=== PATIENT | male | born 1955 | race Caucasian/White ===

== ENCOUNTER 2018-07-19 16:07 | Inpatient (IN) | payer OTHER ==
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
[2018-07-19 16:50] LABS: PLATELET COUNT 241 10^3/uL (150-400)
[2018-07-19] MEDS ORDERED: ONDANSETRON 4 MG/2 ML VIAL IVP PRN (18:19)
[2018-07-19] MEDS ORDERED: ONDANSETRON DISINTEGRATING 4 MG TAB PO PRN (18:19)
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
[2018-07-19] MEDS ORDERED: LORazepam 2 MG/ML INJ IVP PRN (20:36)
[2018-07-19] MEDS ORDERED: LORazepam 1 MG TAB PO PRN (20:36)
[2018-07-19] MEDS: THIAMINE HCL 500 MG in NS 100 ML IV SCH (21:22)
[2018-07-19] MEDS: NS 1,000 ML IV SCH (21:22)
[2018-07-20 04:23] LABS: PLATELET COUNT 225 10^3/uL (150-400)
[2018-07-20] MEDS: FOLIC ACID 1 MG TAB PO SCH (09:28)
[2018-07-20] MEDS: MULTIVITAMINS 1 EACH TAB PO SCH (09:28)
[2018-07-20] MEDS: THIAMINE HCL 500 MG in NS 100 ML IV SCH (09:29)
--- NOTE | 2018-07-20 09:32 | PDMN ---
Medical Necessity Medical necessity: [facility] [id number] acute renal failure: 3 days: Cr. elevated ( 4.2, 4.5) pt with acute dizziness, shakiness, anorexia, reduced oral intake, oliguria, symptoms progressing over last 2 days, pt also with active paranoid delusions.- Nephrology consult pending, pt will need TLC consult after medically cleared. anticipate > 2 MN for ongoing med nec care, further eval and tx.
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
[2018-07-20] MEDS ORDERED: POTASSIUM CL 20 MEQ/15 ML UDCUP PO ONE (12:37)
[2018-07-20] MEDS ORDERED: POTASSIUM CL 20 MEQ TAB PO ONE (13:15)
--- NOTE | 2018-07-20 13:40 | SOAPPROG ---
[facility] Progress Note Assessment/Plan: Assessment: Renal consult-- see dictation # [id number] I discussed my recs with Dr. Gabbi Preston MD [facility] pager [phone] 07/20/18 15:32 Objective: Vital Signs Temp Pulse Resp BP Pulse Ox 36.5 C 69 18 120/72 90 L 07/20/18 11:14 07/20/18 11:14 07/20/18 11:14 07/20/18 11:14 07/20/18 11:14 Laboratory Results 07/20/18 03:35 07/20/18 03:35 07/19/18 07/20/18 07/21/18 05:59 05:59 05:59 Intake Total 400 620 Output Total 250 875 Balance 150 -255 ICD10 Worksheet Patient Problems: Problems Problem Status Onset Acute kidney injury Acute Delusional disorder Acute
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
[2018-07-20] MEDS: NS 1,000 ML IV SCH (18:55)
[2018-07-20] MEDS: ACETAMINOPHEN 325 MG TAB PO PRN (20:11)
[2018-07-20] MEDS: LORazepam 0.5 MG TAB PO PRN (20:12)
[2018-07-21] MEDS: NS 1,000 ML IV SCH ×2 (01:20→09:00)
[2018-07-21 06:08] LABS: HIV TYPE 1 AND 2 NEGATIVE (NEGATIVE)
[2018-07-21] MEDS ORDERED: PROTOCOL POTASSIUM 1 DOSE MISC PRN (08:41)
[2018-07-21] MEDS ORDERED: POTASSIUM CL 10 MEQ TAB PO ONE ×2 (08:46→19:25)
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
[2018-07-21] MEDS: FOLIC ACID 1 MG TAB PO SCH (09:41)
[2018-07-21] MEDS: MULTIVITAMINS 1 EACH TAB PO SCH (09:42)
[2018-07-21] MEDS: THIAMINE HCL 500 MG in NS 100 ML IV SCH (09:43)
[2018-07-21] MEDS: ACETAMINOPHEN 325 MG TAB PO PRN ×2 (10:51→20:54)
[2018-07-21] MEDS: POTASSIUM CL 10 MEQ TAB PO SCH ×2 (10:52→14:17)
[2018-07-21] MEDS: LORazepam 1 MG TAB PO PRN ×2 (12:50→20:54)
--- NOTE | 2018-07-21 14:08 | HOSPPROG ---
Hospitalist Progress Note Objective: Vital Signs Temp Pulse Resp BP Pulse Ox 36.5 C 76 18 145/86 H 92 07/21/18 11:35 07/21/18 11:35 07/21/18 11:35 07/21/18 11:35 07/21/18 11:35 Laboratory Results 07/21/18 06:50 07/21/18 03:48 07/20/18 07/21/18 07/22/18 05:59 05:59 05:59 Intake Total 400 4625 Output Total 250 1875 1950 Balance 150 2750 -1950 ICD10 Worksheet Patient Problems: Problems Problem Status Onset Acute kidney injury Acute Delusional disorder Acute
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
[2018-07-21] MEDS: D5W NS W/ 20 KCl/L 1,000 ML IV SCH (15:46)
[2018-07-22] MEDS: D5W NS W/ 20 KCl/L 1,000 ML IV SCH ×3 (01:25→21:58)
[2018-07-22] MEDS ORDERED: PROTOCOL MAGNESIUM 1 DOSE IV PRN (07:29)
[2018-07-22] MEDS ORDERED: MAGNESIUM SULF 2 GM/WATER 50 ML IV ONE (09:29)
--- NOTE | 2018-07-22 09:34 | SOAPPROG ---
SOAP Progress Note Assessment/Plan: Assessment: PRAVIN, resolving with hydration, creat 4.5, 2.5, 1.4, no value today hypokalemia continues to improve with supplements hypomagnesemia, will supplement today and follow acidosis improving with volume and electrolyte replacement Plan: continue therapies await today's labs supplement mag and K as necessary follow lytes vol and renal function 07/22/18 09:31 Subjective: resting quietly has been delusional Objective: Vital Signs Temp Pulse Resp BP Pulse Ox 36.8 C 64 14 174/95 H 93 07/22/18 04:00 07/22/18 04:00 07/22/18 04:00 07/22/18 04:00 07/22/18 04:00 Laboratory Results 07/21/18 06:50 07/22/18 03:20 07/21/18 07/22/18 07/23/18 05:59 05:59 05:59 Intake Total 4625 3855 Output Total 1875 3700 Balance 2750 155 Physical Exam - Physical Exam General Appearance: thin, other (resting) Neck: normal inspection Respiratory: No rhonchi, No wheezing Cardiac/Chest: No edema, No gallop, No friction rub Abdomen: normal bowel sounds, non-tender, soft Skin: warm/dry Extremities: non-tender Neuro/Psych: other (resting/arouseable) ICD10 Worksheet Patient Problems: Problems Problem Status Onset Acute kidney injury Acute Delusional disorder Acute
[2018-07-22] MEDS: METOPROLOL SUCCINATE XR 50 MG TAB PO SCH (11:14)
[2018-07-22] MEDS: amLODIPine BESYLATE 5 MG TAB PO SCH (11:14)
[2018-07-22] MEDS: THIAMINE HCL 100 MG TAB PO SCH (11:14)
[2018-07-22] MEDS: MULTIVITAMINS 1 EACH TAB PO SCH (11:14)
[2018-07-22] MEDS: FOLIC ACID 1 MG TAB PO SCH (11:15)
[2018-07-22] MEDS: ACETAMINOPHEN 325 MG TAB PO PRN (11:22)
[2018-07-22] MEDS: LORazepam 1 MG TAB PO PRN (14:16)
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
--- NOTE | 2018-07-22 19:30 | PDCONSULT ---
Educational Technology Specialist Note: PSYCHIATRY MD CONSULT Pt interviewed for 60+min today, reviewed EMR and discussed case with hospitalist Dr. Sunita Waldron who requested psychiatry consult for evaluation of delusions and recommendations. CC: "Unless you can arrest the people doing this to me, you won't be able to help me". BRIEF HISTORY: 62yo CM with no prior formal psychiatric hx admitted with acute kidney injury which seems to be related to his admitted decreased oral intake over past 2 weeks due to increased paranoid delusions of being poisoned. Delusions are chronic, have been occurring over past 9+ years and have resulted in his moving several times, increasing social isolation although presently still maintaining employment. He is convinced of being stalked by an extensive network of individuals who for years have focused on harassing him and disrupting his sleep , and more recently over past couple of weeks have "stepped up their attacks" by trying to kill him by poisoning him with contaminating his food and pumping toxic gas into the air. For this reason he states he has not been eating x 2 wks, with decreased fluid intake, and reporting 20# wt loss over this period of time, although still admits to continued EtOH intake to deal with associated anxiety, and has been maintaining his employment. Reportedly employer tolerates his eccentricities ( including wearing baseball cap and hoodie to block chemicals etc falling on him while he is working) b/c he is a good employee and generates good money for them. He spends much time/energy trying to deal with his perceived stalkers, has called police, FBI and stalking hotlines etc but feels no one believes him. Looking for validation, states price changer who consulted recently mentioned tests for paint thinner exposure etc which could contribute to his symptoms. States he must find ways to protect his food because at any stage (purchasing, opening, consuming) it could get "tainted". He doesn't use refrigerator at work anymore either b/c feels it has been compromised. Has been eating while in hospital, and drinking fluids, doesn't feel this way as much here but does feel they will catch up to him at some point. He finds support and validation on online sites where others describe similar experiences. He admits to regular EtOH use, and does not plan to abstain b/c this helps him with deal with associated anxiety,and sees his EtOH use as his one temporary relief. Feels prn Ativan here in hospital helps with sleep. Reports stalking started increasing paranoia over 9 years which started " because I insulted the wrong person" many years ago. 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 Subsequently moved out of his apt, and has been moving ever since. Directed this MD to [employer]" to verify that things like this happen, "and you become a T.I., a targeted individual," being harrassed, intimidated and deprived of sleep. "The choose targets like me , old, alone, no family..." or create situations which serve to isolate individuals from family, like causing him to move. Has had to engage in behaviors like blocking up vents and in the past in [place] was sleeping under his bed until he heard "them" in crawl space between floors beneath him. Requests assistance with legal action and arrests of involved individuals, has called FBI, also [place] police "and they brought people like you, head doctors." Denies hx of manic symptoms, and feels justifiably depressed although not hopeless. "I still have some hope", and desires help which is why he came to hospital. Has lost weight but not without appetite, just describes being paranoid about food being poisoned. Sleep is interrupted, energy and concentration are fine. Has no time to engage in activities he previously enjoyed b/c of being stalked and always trying to maintain his safety. Admits he has no social supports although does occasionally talk to his sisters in [place], and his boss. Has refused any SIMEON. He presently feels relatively safer in hospital, staff report he has been eating meals and rehydrating since admission, with steady improvement of his renal function. Also sleeping a bit better since in hospital, and physically feeling better. Denies any SI or thoughts to harm others even in any retaliation for his being persecuted, "No, I'm not that kind of rojas", but does feel "they" will "step up their attacks" against him, and is afraid they will ultimately kill him. Does not want to , "that's why I came here (to hospital) , because I don't want to ." Not suicidal and with no thoughts/plan/intent to harm others. Feels he is the one being targeted. Denies access to weapons, owns no guns, and only has some knives at home he reports he does not carry with him. Many years ago he carried one for protection. PSYCHIATRIC/SUBST USE HX: Denies prior psychiatric treatment, inpatient or outpatient setting, or any prior therapy or psychiatric medications. Denies illicit substance use, although alluded to THC during youth, and still drinks EtOH regularly but feels it is not problematic b/c he still goes to work, doesn' t drink when working, doesn't have cirrhosis or withdrawal, denies hx of DTs. Denies known family psychiatric illness or hx of substance use. SOCIAL HX: Grew up in [place], moved to [place] about 6 years ago after applying online for a job and getting hired. Admits did move several times in the prior few years to get away from being stalked, moved within [place] then to [place] then to [place] and has moved about 2x/yr over past 6 yrs, which has negatively impacted his credit due to breaking leases and cost him $ in losing his deposits several times. Now resides in [facility] 5mo, now considering moving again due to attempted poisonings. Has 2 sisters in [place], mother in [place], father of [place] in pt thinks due to years of immunosuppressant drugs following cardiac transplant (became briefly tearful about this). once, . No children. Attended college, degree in journalism. 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 publication many years ago. MSE: cooperative, good eye contact although wearing sunglasses throughout initial part of interview he reports due to light sensitivity despite curtains drawn, nml psychomotor activity, sitting upright in hospital bed, with nml speech vol/rate, not pressured, +articulate, mood "fine" although admits baseline anxiety and some depression related to being chronically stalked, affect somewhat constricted but appropriately smiles and engages, thought process/content- linear, goal-directed responses to questions although guarded with some information due to concerns that members of gang stalking him would be wanting such information (such as if he ever considered moving back to [place] near supportive siblings to be less isolated), elaborate system of delusions around gang members stalking him for past 9 years with intent to harass or disrupt sleep, and recently trying to kill him, has experienced ideas of reference in the past not presently, occasionally expressing suspicion that this MD and some other staff may be involved with this conspiracy but overall did express feeling safer in hospital setting including with food/fluids. Consistently denied any suicidal ideations (active or passive) and denied any thoughts to harm others or thoughts of retaliation towards any "gangstalking" members. Is convinced this is an extensive network, and does not always feel certain he knows who is invoved, but does feel comments some people say to him make him more suspicious of their involvement (ie. new young hire at work who randomly asked him, "how are you holding up?" and later quit the job). Denies experiencing AH/VH although based on his history, it is possible he has experienced AH unless just a paranoid interpretation/ideas of reference of what others actually have said to him (ie. hearing upstairs neighbors yell at him many years ago). insight poor, judgment impaired due to his delusions. cognition conversationally intact. IMPRESSION: 62yo CM with a history of EtOH also chronic delusions starting 9 years ago who presented with presyncopal symptoms and foudn with acute kidney injury apparently related to decreased oral intake over past 2 weeks due to increased paranoid delusions of being poisoned. His delusions have resulted in his moving several times, increasing social isolation although presently still maintaining employment. He is convinced he is being stalked by an extensive network of individuals who focus on harassing and intimidating him, disrupting his sleep, and more recently have been trying to kill him by poisoning him with contaminating his food and pumping toxic gas into the air. He admits to regular EtOH use, and does not plan to abstain b/c this helps him with deal with associated anxiety. Is willing to try some medication low dose as noted below. Due to difficult nature of treating delusional d/o, focus primarily on managing/treating associated anxiety and insomnia and routine monitoring of medical condition would be most beneficial at this time. DX Delusional d/o EtOH use d/o, unspecified r/o depression with psychotic f, r/o schizophrenia spectrum d/o r/o psychosis due to substance use r/o psychosis due to general medical condition REC Does not presently meet criteria for M-1 and involuntary psychiatric hospitalization, denies thoughts to harm self or others, and presently plans to return to work and implement other strategies (he declined to elaborate) to keep his food/drink safe after d/c. Does worry attacks on him will increase after d/c, and does state he will return to hospital if not feeling well or otherwise unable to manage safely. If symptoms and functioning continue to worsen and he puts himself at recurrent medical risk, would reassess for M-1 and consider inpatient psychiatric hospitalization. Presently accepts offer to trial Zyprexa tonight for this thoughts/fears/anxiety /sleep/appetite. Will start 5mg HS b/c about 60% renally cleared and still with Cr 1.4, and prefer to minimize risk of s/e with lower dose. Focused on emotional and physical distress his experiences of being targeted are causing him. Patient states he would not be entirely opposed to considering therapy for increased outpatient support, just feels he is "old school" and seems to see this as a weakness. But does acknowledge being all alone with no other emotional support, and therapy was explained as primarily to help support him in dealing with his anxiety and help him develop alternate coping strategies to deal with the fears/thoughts he experiences. Admits he does feel depressed, "who wouldn't", about current situation and chronically being targeted. Stated "they" previously just harassed him and caused insomnia, but more recently have been trying to kill him with attempted poisoning. Then expresses not being sure if I am part of "them". Admits to regular EtOH use to deal with his anxiety. Does not want to give this up. Unclear role that EtOH use plays in his delusions or experience of smells, not clearly with any evidence or hx of delirium tremens. Ativan prn helpful during hospital stay, and pt did not seem to experience significant signs/ symptoms of EtOH withdrawal from vital signs, and no tremor noted on exam today. EtOH also can adversely affect sleep. Educated on EtOH risks. Pt however maintains EtOH not problematic for him b/c can still function well at work, doesn't drink when working, and does not have cirrhosis. Also uses Benadryl at home prn insomnia, evaded responding to how much or how often. Perhaps up to 100mg. Educated pt on risks of anticholinergic medications , which also can affect cognition and cause delirium/AMS . Advised to avoid, and rather use Zyprexa, which has s/e of sedation and can help sleep. And Ibuprofen 800mg averaging BID which also could adversely affect kidney function, and affect BP. Doesn't want to say what strategies he is considering to keep his food safe after d/c, b/c "then they will find out", but does plan to engage in steps to decrease risk of contamination/"tainting" whether by wrapping, sealing, buying prepackaged and sealed foods, and states he will try to ensure adequate food/ fluid intake b/c he does not want to become medically ill again nor does he want to , "that's why I came in for help". Does feel he still has his job, has told employer he is in hospital. But does worry about his job security if keeps ending up sick in hospital. Has been a very productive employee the last couple of years. [facility]. Expensive for him, 3K/mo. Does experience chemical smells and tastes, especially late at night in his residence, less so in hospital setting, which is why he feels he is being gassed and poisoned. Hospitalist will also consult neurology and consider MRI. Will continue to follow. Thank you for consulting behavioral health service.
[2018-07-22] MEDS ORDERED: OLANZapine 5 MG TAB PO SCH (21:00)
[2018-07-22] MEDS ORDERED: OLANZapine DISINTEGR 10 MG TAB PO SCH (21:00)
[2018-07-22] MEDS: LORazepam 0.5 MG TAB PO PRN (21:57)
[2018-07-23] MEDS ORDERED: POTASSIUM CL 10 MEQ TAB PO ONE (09:10)
[2018-07-23] MEDS: MULTIVITAMINS 1 EACH TAB PO SCH (09:25)
[2018-07-23] MEDS: METOPROLOL SUCCINATE XR 50 MG TAB PO SCH (09:25)
[2018-07-23] MEDS: THIAMINE HCL 100 MG TAB PO SCH (09:25)
[2018-07-23] MEDS: amLODIPine BESYLATE 5 MG TAB PO SCH (09:27)
[2018-07-23] MEDS: FOLIC ACID 1 MG TAB PO SCH (09:27)
[2018-07-23 09:32] VITALS: BP 167/98
[2018-07-23] MEDS ORDERED: MAGNESIUM SULF 1 GM/DEXTROSE 100 ML IV ONE (09:42)
[2018-07-23] MEDS: D5W NS W/ 20 KCl/L 1,000 ML IV SCH (09:50)
--- NOTE | 2018-07-23 09:57 | GCON ---
BRIEF NEUROLOGIC CONSULTATION NOTE HISTORY OF PRESENT ILLNESS: He is a 62-year-old gentleman who has a very fixed paranoid delusional s ystem in place. I have reviewed the medical records and discussed this with the patient. I specific ally reviewed Dr. Marques' psychiatry consultation note. I was asked to become involved for the quest ions of whether there was a feeling of any other specific organic cause perhaps accounting for his ch anges. The patient says it has been going on for about 9 years, and he absolutely is convinced that someone is trying to kill him and that no one believes him, including the police or the FBI or any of his doctors. His primary care is Dr. Rubén Segura, but he says he has not told him about it becau se he is afraid he will be just like every other doctor and not believe him. He says he is not inter ested in more diagnostic evaluations. He did come in with a head CT that is unremarkable, except for some mild atrophy. As we speak, it is very clear that he has profound belief that none of the medical profession accepts his reality of paranoia and fear of being killed. I tried to reason with him regarding why we would think this way, but that is not of any interest to him. My impression is that he does not have an unusual, primary neurologic disease, although I feel this i s always an evolving science to understand what generates such profound changes, which continue to be challenging for all professionals involved. The management strategies will be dictated through [facility] cheryl's recommendations, but I do not feel more neurologic tests are indicated. I do not think MRI would add further insight beyond what we have seen on head CT nor EEG or lumbar puncture. Therefore, I am happy to answer additional questions as they may arise but really feel that his management stra tegies and treatment are all through the mental health system, which he, unfortunately, is unwilling to embrace at this point. /[id number]/MODL
[2018-07-23] MEDS ORDERED: ENOXAPARIN 40 MG/0.4 ML SYR SC SCH (11:00)
--- NOTE | 2018-07-23 11:28 | PDIAF ---
- Diagnosis Diagnosis: delusional disorder Code Status: Full Code - Medication Management Discharge Medications: Medications to Continue on Transfer LORazepam [Ativan (*)] 0.5 mg PO HS PRN 07/19/18 [Last Taken Unknown] Metoprolol Succinate Xr [Toprol Xl 50 mg (*)] 50 mg PO DAILY 07/19/18 [Last Taken 07/19/18] OLANZapine [OLANZapine (*)] 5 mg PO HS #30 tab 07/23/18 [Last Taken Unknown] amLODIPine BESYLATE [Norvasc 5 mg (*)] 5 mg PO DAILY #30 tab 07/23/18 [Last Taken Unknown] Discharge Medications: Refer to the Discharge Home Medication list for PRN reason. PICC Care - Routine: N/A - Orders Services needed: Home Care, Master Core Blower Operator Home Care Face to Face: I certify that this patient was under my care and that I had the required [id number] encounter meeting the encounter requirements on the discharge day. My findings support the fact that the patient is homebound as defined in Home Care Face to Face Continued: CMS Chapter 7 Medicare Benefits Manual 30.1.1 , The condition of the patient is such that there exists a normal inability to leave home and consequently, leaving home would require a considerable and taxing effort. Diet Recommendation: no restrictions on diet - Follow Up Care Current Providers and Referrals: Patient,NotPresent [Unknown] - As per Instructions Rubén Segura MD [[facility] Primary Care Provider] -
--- NOTE | 2018-07-23 11:53 | ASDISCHSUM ---
Discharge Information Plan Status:Home with No Needs Medically Cleared to Leave:07/23/2018 Discharge Date:07/23/2018 CM D/C Disposition: ADT D/C Disposition:Home Health Service Projected Discharge Date:07/23/2018 11:00 AM Transportation at D/C: Discharge Delay Reason: Follow-Up Date:07/23/2018 11:00 AM Discharge Slot: Final Diagnosis: Placement Information Referral Type:*Home Health Care Services Referral ID:[id number] Provider Name: Address 1: Phone Number: Address 2: Fax Number: City: Selection Factors: State: Patient Contact Information Contact Name:ROSENDO Relationship:Sister Address: Work Phone: City: [facility] Phone: [facility] Code:CHANTAL Email: Financial Information Financial Class:HMO and PPO Plans Primary Plan Desc:ELADIA PPO POS HMO Primary Plan Number:[id number] Secondary Plan Desc: Secondary Plan Number: Assessment Information LACE LACE Length of stay for Answers: 4-6 days current admission Acuity / Level of Answers: Yes Care: Did the patient have an inpatient admission? Comorbidities - select Answers: Moderate or severe liver all that apply or renal disease Other Notes: HTN # of Emergency department Answers: 1-2 visits in the last 6 months Social determinants Answers: History of substance abuse (ETOH, street drugs, prescription drugs, etc.) Mental health diagnosis (anxiety, depression, pers onality disorders, etc.) Score: 19 Date Signed: 07/23/2018 11:50 AM Electronically Signed By:SAMINA Barrios CAGE Questionnaire CAGE Additional Comments Pt declined to answer questions stating case management can't provide the resources needed to handle the people trying to poison him. Date Signed: 07/20/2018 10:47 AM Electronically Signed By:Juany Vasquez RN [facility] CM Progress Note CM Note CM Note Notes: 07/20/2018 Case Management Note Pt admitted for PRAVIN and pre syncope. In addition, pt is suffering from paranoid delusions stating to case management that people have been trying to poison him for 6 years [place] two states and that they have found him here at [facility]. Refused to complete CAGE, highly suspicious of case management motives for the screening. Pt states sister Hemalatha [phone] lives in [place]. Pt states his younger sister lives in [facility] [place], pt was hesitant to provide her name. Pt is residing in a studio at the [facility]. 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 Pt declined any assistance from case management stating he has little to look forward to at discharge d/t the stalkers who are ruining his life. Case Management d/c poc: to be determined, possibly inpatient behavioral health. Case Management to follow. Date Signed: 07/20/2018 10:55 AM Electronically Signed By:Juany Vasquez RN [facility] CM Progress Note CM Note CM Note Notes: CM spent a lengthy amount of time with Pt. Pt appears to have a fixed delusion re having a "gang" poisoning him over the last 9 years; he says their efforts have been increasing and believes eventually he will be killed. He traces the start of this to a quarrel with a neighbor, who lived above him in an apt, in [facility]. He denied this CM's request to contact his family, but did share that his family does not believe him. In the past he has opened up to others about his circumstance and it's been inferred multiple times that he is "crazy". 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 He also seems to have several acquaintances/friends that accept him as having these beliefs, although haven't stated whether they believe them to be true. CM asked Pt if he's ever considered the possibility of this being a delusion. Pt shared that he felt there may have been several small instances when he imagined things, but overall no; he believes his experiences to be real. Pt has a job and resides at the [facility]. Dr Marques has been asked for a psych consult; that will occur tomorrow. Pt is concerned that he may be "locked up". Psychiatric holds were explained to him. He brought up enjoying "talking to a counselor" and was told that if that was something he was interested in upon d/c CM could help with that. CM will follow. D/C Plan: Anticipate independent with possibly out-pt referrals for psychiatric help. Date Signed: 07/21/2018 02:46 PM Electronically Signed By:Deepti Grady [facility] CM Progress Note CM Note CM Note Notes: Pts case discussed w/ and Dr. Marques. Pt is being discharged today. Dr. Andrade is recommending that a HC, Fishing Game Warden follows up w/ pt. Pt is refusing this services at this time and reports that he will think about it. Pt does not want CM to make any appointments for him. CM provided pt w/ psychology today resources for a therapist. CM provided pt w/ a work excuse letter. No other needs at this time. CM available for changes. Plan: Independent Date Signed: 07/23/2018 11:50 AM Electronically Signed By:SAMINA Barrios Intervention Information
--- NOTE | 2018-07-23 12:46 | SOAPPROG ---
SOAP Progress Note Assessment/Plan: Assessment: PRAVIN, resolving with hydration, creat 4.5, 2.5, 1.4, 0.9 today hypokalemia continues to improve with supplements hypomagnesemia, will supplement, better today acidosis improved with volume and electrolyte replacement Plan: continue therapies await today's labs supplement mag and K as necessary follow lytes vol and renal function no further renal needs will sign off 07/22/18 09:31 07/23/18 12:44 Subjective: up and around feels better after his shower Objective: Vital Signs Temp Pulse Resp BP Pulse Ox 36.4 C 59 L 16 167/98 H 96 07/23/18 07:16 07/23/18 09:25 07/23/18 07:16 07/23/18 09:27 07/23/18 07:16 Laboratory Results 07/21/18 06:50 07/23/18 07:58 07/22/18 07/23/18 07/24/18 05:59 05:59 05:59 Intake Total 3855 2000 Output Total 3700 2375 600 Balance 155 -375 600 Physical Exam - Physical Exam General Appearance: alert Neck: normal inspection Respiratory: No rhonchi, No wheezing Cardiac/Chest: regular rate, rhythm Abdomen: normal bowel sounds, non-tender Extremities: No swelling Neuro/Psych: alert ICD10 Worksheet Patient Problems: Problems Problem Status Onset Acute kidney injury Acute Delusional disorder Acute
--- NOTE | 2018-07-23 14:11 | SOAPPROG ---
SOAP Progress Note Assessment/Plan: PSYCHIATRY F/U 62yo with delusional d/o and alcohol use d/o admitted with ARF related to poor po due to delusional beliefs about poisoning. Met with patient this AM x 30min. Was getting ready to order breakfast. Hoped he could at least get bkfast and lunch before getting d/c'd today, which he is a bit anxious about. Patient denied any side effects or intolerances to Zyprexa which he took last night. States slept well a couple of hours after taking medication, it was "not too strong" and slept until awakened for labs. Denied any SI, not passive or active and again denied having any thoughts of harming others. Not sure who the individuals are who are targeting him and is not feeling hopeless, not giving up. states he will be trying to figure out how he can continue to eat and drink safely and take steps to avoid food/drink getting "tainted", also may have to move again. Concerned about 1 week of missed work he has to catch up on, states he plans to continue working at current employment, not sure how long he will stay at [facility] because not feeling safe there due to toxic gas fumes he believes have been being pumped in. Does state he can and he will return to hospital or clinic if not feeling well again or otherwise feels unable to maintain safety or safely. Patient was wanting some validation that he has been a victim of poisoning. States he will f/u with PCP to f/u on his kidney function. Also wanted to f/u with outpatient nephrology to f/u on tests they ordered. Pt states he would accept referrals for counseling for additional support especially around coping and developing additional strategies to deal with the emotional stress he has been under related to his delusional beliefs which he maintains are real. MSE: cooperative, good eye contact, not wearing sunglasses this AM. nml speech rate/vol. expresses some anxiety about d/c b/c admittedly does feel overall safer in hospital although also concerned about missing work. mood okay, affect reserved. did not appear responding to internal stimuli. denied AH/VH. denied any SI or HI. tp- linear, goal directed, tc- appropriate to conversation but still with persisting delusional beliefs. i/ j both impaired due to delusions. cognition conversationally intact. DX: Delusional d/o Alcohol use d/o unspecified REC: Does not meet criteria for M-1 for involuntary psychiatric hospitalization. Accepts offer of Rx for Zyprexa 5mg HS although has some reservations about written side effects he reviewed. Did tolerate this med without s/e and encouraged to take 5mg hs for his thoughts/anxiety/sleep, preferentially to benadryl, and f/u with outpatient PCP. pt does not want to stop EtOH at this time although also was advised to abstain or at least decrease EtOH use due to adverse effects on health, sleep and mental health . Accepted offer of mental health referrals, primarily counseling, not sure he wants to see an outpatient psychiatrist b/c feels he will not be believed. Will be provided with [facility]. Does not want any mental health appts scheduled prior to discharge, prefers to schedule on his own. Case management will offer home health social work for additional support. 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 Objective: Vital Signs Temp Pulse Resp BP Pulse Ox 36.4 C 59 L 16 167/98 H 96 07/23/18 07:16 07/23/18 09:25 07/23/18 07:16 07/23/18 09:27 07/23/18 07:16 Laboratory Results 07/21/18 06:50 07/23/18 07:58 07/22/18 07/23/18 07/24/18 05:59 05:59 05:59 Intake Total 9785 4979 Output Total 2512 5441 028 Balance 339 -464 -104 - Time Spent With Patient Time Spent With Patient: 35min ICD10 Worksheet Patient Problems: Problems Problem Status Onset Acute kidney injury Acute Delusional disorder Acute
--- NOTE | 2018-07-23 15:58 | GDS ---
DISCHARGE DIAGNOSES: 1. Acute kidney injury, likely secondary to volume depletion, plus use of nonsteroidal anti-inflamma tory drugs, angiotensin II receptor misty and diuretic, resolved. 2. Delusional disorder, not otherwise specified. 3. Alcohol abuse. 4. Hypertension. CONSULTANTS: 1. Dr. Benita Preston, Nephrology. 2. Dr. Leyla Marques, Psychiatry. 3. Dr. Paul Segura, Neurology. HISTORY: For details, please see history and physical dated July 19, 2018. In brief, the patie maddison is a 62-year-old male with history of hypertension, anxiety, and prior episodes of paranoid delusi ons, who presented to the emergency department with acute dizziness. He was admitted to the hospital for further management. HOSPITAL COURSE: Patient was admitted to the cardiac telemetry unit for acute kidney injury. He rec eived IV fluid hydration. His losartan and HCTZ were held, and these continued to be held at dischar ge in favor of Norvasc and metoprolol. He was also advised to discontinue the use of anti-inflammato sergey as he is at risk for volume depletion. Renal consult was obtained. His creatinine completely n ormalized from 4.2 on arrival, and at discharge, his creatinine was down to 0.9. He has had good uri ne output. Given his delusions of thinking he was being stalked by gangs, a psychiatry consult was o btained. He was started on oral Zyprexa at bedtime. Psychiatry did not believe he warranted [facility] admission as he was not suicidal or homicidal, nor does he seem to be a grave danger t o himself. He will have home care, social work, and close followup with his primary care physician, and Psychiatry will try to secure outpatient Behavioral Health followup. Part of the problem is he h as had poor oral intake due to thinking that he is being poisoned, and this may have led to his volum e depletion, followed by acute kidney injury. He has been tolerating a full diet here, and although he is nervous about going home, as he is currently living at the [facility], and he continues to h ave fears of being poisoned, he is agreeable to discharge with close outpatient followup. DISPOSITION: Patient is discharged home in stable condition with home health, social work, and close followup with Behavioral Health and primary care. FOLLOWUP: 1. Dr. Rubén Segura, primary care. 2. Mental health followup. The patient wishes to schedule this himself. He is referred to [facility], and he is also provided with additional mental health resources by our certified social workers in health care. DISCHARGE MEDICATIONS: Please see [facility] for completed outpatient medication list. New medication s on discharge include Zyprexa 5 mg p.o. q.h.s., #30, no refills; amlodipine 5 mg p.o. daily, #30, no refills. He will continue Toprol-XL 50 mg p.o. daily and Ativan 0.5 mg p.o. q.h.s. p.r.n. Discontinued medications: Losartan/HCTZ is discontinued due to acute renal failure, and ibuprofen is also discontinued for the same reason. Although his renal functions normalized, he is at risk for r ecurrent acute kidney injury due to risk of poor oral intake due to his delusions. Should he require recurrent hospitalization in the near future, would have a low threshold to push for inpatient psych iatric admission. /[id number]/MODL
== END 2018-07-23 13:51 | disposition home health service (06) | DRG 684 ==
LOC: EDUNIT# → F2W 20:42
PROVIDERS: ADMIT Internal Medicine; ATTEND Internal Medicine
DX: N17.9 Acute kidney failure, unspecified (principal); F22 Delusional disorders; E87.6 Hypokalemia; E83.42 Hypomagnesemia; F41.9 Anxiety disorder, unspecified
CPT/HCPCS: 80305; 80307; 82607-90; 97165-GO; G0480; J3411; J3475